=== PATIENT | female | born 1975 | race Caucasian/White ===

== ENCOUNTER → 2022-04-12 13:02 | Outpatient (CLI) | payer OTHER, SELFPAY ==
[2022-04-12 14:16] LABS: COVID19 -Nasal RAPID Negative (Negative)
== END ==
PROVIDERS: PCP Student in an Organized Health Care Education/Training Program; Visit Provider Surgery
DX: Z20.822 Contact with and (suspected) exposure to COVID-19 (principal); Z01.812 Encounter for preprocedural laboratory examination
CPT/HCPCS: 87635; C9803

== ENCOUNTER 2022-04-13 12:43 | Day surgery (SDC) | payer OTHER, SELFPAY ==
[2022-04-12 07:48] VITALS: BMI 37.7
[2022-04-13] VITALS (7 sets, daily range): BP systolic 131–158; BP diastolic 74–101; PULSE 72–101; RESP 16–20; TEMP 36.4–36.9; O2SAT 92–100; BMI 37.7
--- NOTE | 2022-04-13 | PATH_ITS ---
[facility] Accession Number: [id number] . 01 Material submitted: . buttock - LEFT BUTTOCK . 01 Clinical history: . SOFT TISSUE MASS . 01 Diagnosis: Left Buttock, Excisions: Fragments of mature fibroadipose tissue with fat necrosis, consistent with lipoma. MRV 04/18/2022 1023 Local . 01 Electronically signed: . Gen Garce MD, Dermatopathologist NPI- [id number] . 01 Gross description: . Received in formalin labeled with the patient's name and left buttock soft tissue mass and consists of multiple fragments of yellow lobulated soft tissue admixed with pink smooth soft tissue aggregating to 8.5 x 6.3 x 2.4 cm. The external surface of the largest fragment is inked blue. The specimen is serially sectioned to reveal yellow to pink unremarkable cut surface. Front End Manager sections are submitted in cassettes A1-A3. ([id number]) /[facility] 04/15/2022 1744 Local . 01 Pathologist provided ICD-10: D17.9 . 01 CPT . 441347 Specimen Comment: A courtesy copy of this report has been sent to [phone] Performed at: 01 [facility] [address] [place] [address] [address], [place], [place] [id number] MD Seth Marcelo MD Phone: [phone]
[2022-04-13] MEDS: LACTATED RINGERS 1,000 ML 100 ML IV (13:23)
--- NOTE | 2022-04-13 14:27 | PM.HP.1 ---
History of Present Illness History of Present Illness Date Patient Seen: 04/13/22 Time Patient Seen: 14:28 Chief complaint: ALC Narrative: 46-year-old woman with a symptomatic soft tissue mass of the left buttock here for excision in operating room. No interval changes in health. Please refer to the H& P from March 03, 2022 for further detail. Patient History Medical History Anxiety Bipolar 1 disorder Depression Encounter for weight management Family history of breast cancer Hot flashes Hypertension Hyponatremia Mass of left lower extremity PTSD (post-traumatic stress disorder) Surgical History History of endometrial ablation (07/2013) History of surgery (2005) History of surgery (2005) History of surgery (2005) Hx of appendectomy (2003) Hx of tubal ligation (2012) Family & Social History Family History Grandmother Hypertension Stroke Father Diabetes mellitus Social History: household members spouse Tobacco & Substance use: Tobacco type cigarettes Smoking Status Current every day smoker alcohol intake current Substance Use Type does not use Meds Home Medications and Allergies Home Medications Medication Instructions Recorded Confirmed Type bupropion HCl 150 mg 24 hr tablet, 150 mg PO QAM 03/03/22 04/13/22 History extended release lamotrigine 150 mg tablet 150 mg PO DAILY 03/03/22 04/13/22 History losartan 50 mg tablet (Cozaar) 50 mg PO DAILY 03/03/22 04/13/22 History ziprasidone HCl 40 mg capsule 40 mg PO BID 03/03/22 04/13/22 History Allergies Allergy/AdvReac Type Severity Reaction Status Date / Time ceftriaxone [From Rocephin] Allergy Mild Hives Verified 04/13/22 12:58 Exam Vital Signs (past 8 hours): - 04/13/22 13:01 Temperature 97.6 F Pulse Rate 85 Respiratory Rate 16 Blood Pressure 144/91 H Pulse Oximetry 96 Oxygen Delivery Method Room Air Oxygen Delivery Method Room Air Narrative Exam Narrative: General adult woman alert oriented no acute distress Buttocks-left soft tissue superficial mobile mass 10 cm marked with my initials Assessment & Plan Assessment and plan (1) Mass of left lower extremity: Status: Acute Assessment & Plan narrative: 46-year-old woman with a symptomatic soft tissue mass of the left buttock here for excision in operating. Overview of the operation was discussed with the patient. Operative risks including bleeding, infection, seroma formation, recurrence were discussed. Questions have been answered and she is in agreement with this plan Time Spent With Patient Critical Care time: I spent a total of [] minutes of critical care time on this patient's care today; this time is exclusive of procedural time.
[2022-04-13] MEDS: CLINDAMYCIN 900 MG/50 ML PIGGYBACK 50 MG IV (15:10)
--- NOTE | 2022-04-13 15:17 | SUR.OPER ---
Lateral on a mosley bag, head on pillow, gel axillary roll in place, bottom leg bent with gel pad under knee to foot, upper leg straight and supported with pillows. Upper arm supported by pillows and secured over bottom arm to padded arm board. Safety belt at torso to expose operative site, tape over blanket lower legs. Gel pad placed under right arm.
[2022-04-13] MEDS: BUPIVACAINE 0.25% (PF) VIAL 30 ML INJ (15:21)
--- NOTE | 2022-04-13 15:27 | SUR.OPER ---
Patients cell phone placed in belongings bag in pre-op area.
--- NOTE | 2022-04-13 16:14 | PM.OP.1 ---
Operative Date/Time/Diagnoses Date of procedure: 04/13/22 Time of procedure: 16:18 Pre-op diagnosis: Soft tissue mass of left buttock Post-op diagnosis: same Procedure & Clinicians Procedure: Excision of soft tissue mass from left buttock Same procedure as scheduled: Yes Indications: Painful soft tissue mass left buttock Surgeon: Nirmal Brown Anesthesia Type: General Operative Notes Findings: Soft tissue mass was consistent with the lipoma in addition there are remnants of an old cystic sac Specimen(s): other (Soft tissue mass) Estimated Blood Loss (mL): 20 Procedure in detail: Patient was brought to the operating room placed supine on the table. Bilateral lower extremity compression devices were applied. She received clindamycin prior to skin incision. She was induced then intubated with an LMA. She was then placed into the right lateral decubitus position and appropriately padded with he being back. She has an prepped and draped in sterile fashion. Time-out was performed. An incision was made over the area concern on the left buttocks. The subcutaneous tissue was divided and a lipoma was encountered of approximately 10 cm.. Lipoma was dissected out circumferentially. Deep to the lipoma there was a sac of a chronic cyst. There was no obvious cystic fluid however the sac was excised in its entirety. Hemostasis was achieved. The subcutaneous tissue was closed with 3-0 Vicryl. Skin was closed with Monocryl followed by Dermabond application of Steri-Strips. Patient tolerated procedure well. Complications: none Post-operative Condition: stable Disposition: same day surgery
[2022-04-13] MEDS: ACETAMINOPHEN 325 MG TABLET 975 MG PO (16:24)
[2022-04-13] MEDS: OXYCODONE IR 5 MG TABLET PO (16:24)
--- NOTE | 2022-04-13 16:56 | SUR.PHASEI ---
Late entry: 1630: Pt A&Ox4, dressing c/d/i, and ready to transition to phase 2. Report given to KAL Morgan.
== END 2022-04-13 17:00 | disposition home or self-care (01) ==
PROVIDERS: PCP Student in an Organized Health Care Education/Training Program; Referring Provider Surgery; Visit Provider Surgery
PROC: (CPT 21931; principal; 2022-04-13 15:15)
DX: D17.1 Benign lipomatous neoplasm of skin and subcutaneous tissue of trunk (principal)
CPT/HCPCS: 21931; 82962; J1100; J2250; J2405; J2704; J3010

== ENCOUNTER 2022-11-04 05:28 | Emergency (ER) | payer OTHER, SELFPAY ==
--- NOTE | 2022-11-04 05:47 | ED_ITS ---
HPI - Psych <Juan Tracy DO - Last Filed: 11/05/22 06:22> General Chief Complaint: Psychiatric Symptoms Stated Complaint: bipolar 1 cant get it under control Time Seen by Provider: 11/04/22 05:30 History of Present Illness HPI Narrative: 47-year-old female smoker with a history of bipolar and prior episodes of suicidal ideation and attempt presents tearful and requesting help. She states that she is been taking her medications as directed though about 2 weeks ago her prescriber switched her from Geodon to Latuda which seems to likely have been working relatively well but she is feeling out of control right now with intrusive thoughts and suicidal ideation with a plan to overdose on medications. She states that the primary trigger for this the fact that her daughter has been missing for 3 days and can not be found. Furthermore her primary support person is her who is currently away with the [employer] guard and does not return until Monday. She fears that she will hurt herself as she is at home and is very scared. She states that she frequently has auditory hallucinations that are nothing more than a whisper and that might be slightly more intense right now but she can not make out what they say. She denies any visual hallucinati ons. She denies any use of alcohol or street drugs. She last took her mental health medications at 9:00 a.m. yesterday. Related Data Home Medications Medication Instructions Recorded Confirmed bupropion HCl 150 mg 24 hr tablet, 150 mg PO QAM 03/03/22 05/05/22 extended release lamotrigine 150 mg tablet 150 mg PO DAILY 03/03/22 05/05/22 losartan 50 mg tablet (Cozaar) 50 mg PO DAILY 03/03/22 05/05/22 ziprasidone HCl 40 mg capsule 40 mg PO BID 03/03/22 05/05/22 Previous Rx's Medication Instructions Recorded acetaminophen 325 mg capsule 650 mg PO QID PRN pain #60 caps 04/13/22 (Tylenol) ibuprofen 200 mg tablet 400 mg PO Q6H #60 tabs 04/13/22 oxycodone 5 mg tablet 5 mg PO Q6H PRN pain #10 tabs 04/13/22 Allergies Allergy/AdvReac Type Severity Reaction Status Date / Time ceftriaxone [From Rocephin] Allergy Mild Hives Verified 05/05/22 14:34 Review of Systems <Juan Tracy DO - Last Filed: 11/05/22 06:22> Review of Systems Narrative: GENERAL: Denies chills, fatigue, malaise, fever, sweats. HEENT: Denies sinus pain, ear pain, sore throat, difficulty swallowing, dizziness. RESPIRATORY: Denies dyspnea, cough, wheezing, hemoptysis, sputum. CARDIOVASCULAR: Denies chest pain, palpitations, orthopnea, edema, GASTROINTESTINAL: Denies nausea, vomiting, abdominal pain, diarrhea, constipation, melena. : Denies dysuria, frequency, incontinence, hematuria, urinary retention. MUSCULOSKELETAL: denies weakness, joint pain, or bony pain SKIN: Denies rash, skin lesions, or other NEUROLOGIC: Denies weakness, headache, numbness, change in speech, confusion, seizures, incoordination. PSYCHIATRIC: See HPI 12 point review of systems is negative except for those stated above Patient History <Juan Tracy DO - Last Filed: 11/05/22 06:22> Medical History Anxiety Bipolar 1 disorder Depression Encounter for weight management Family history of breast cancer Hot flashes Hypertension Hyponatremia Mass of left lower extremity PTSD (post-traumatic stress disorder) Surgical History History of endometrial ablation (07/2013) History of surgery (2005) History of surgery (2005) History of surgery (2005) Hx of appendectomy (2003) Hx of tubal ligation (2012) Family History Grandmother Hypertension Stroke Father Diabetes mellitus Social History household members: spouse Smoking Status: Current every day smoker alcohol intake: current Smoking Status: Current every day smoker Substance Use Type: does not use Exam <Juan Tracy DO - Last Filed: 11/05/22 06:22> Narrative Exam Narrative: GENERAL: [47] year old patient appears stated age. Well-developed patient, in moderate distress, tearful, crying HEAD: Atraumatic. Normocephalic. EYES: Pupils equal round and reactive. Extraocular motions intact. No scleral icterus. No injection or drainage. ENT: Nose without bleeding, purulent drainage. Throat without erythema, tonsillar hypertrophy or exudate. Airway patent. NECK: Trachea midline. Non tender CARDIOVASCULAR: Regular rate and rhythm without murmurs, gallops, or rubs. RESPIRATORY: Clear to auscultation. Breath sounds equal bilaterally. No wheezes, rales, or rhonchi. GASTROINTESTINAL: Abdomen soft, non-tender, nondistended. EXTREMITIES: No edema or joint tenderness. BACK: Nontender without deformity or crepitance. No flank tenderness. NEURO: AOx3. SKIN: No rash or erythema of visible areas Initial Vital Signs Initial Vital Signs: Vital Signs Temperature 97.6 F 11/04/22 05:54 Pulse Rate 87 11/04/22 05:54 Respiratory Rate 16 11/04/22 05:54 Blood Pressure 183/106 H 11/04/22 05:54 Pulse Oximetry 100 11/04/22 05:54 Oxygen Delivery Method Room Air 11/04/22 05:54 <Sydnie Reynoso DO - Last Filed: 11/04/22 08:18> Initial Vital Signs Initial Vital Signs: Vital Signs Temperature 97.6 F 11/04/22 05:54 Pulse Rate 87 11/04/22 05:54 Respiratory Rate 16 11/04/22 05:54 Blood Pressure 183/106 H 11/04/22 05:54 Pulse Oximetry 100 11/04/22 05:54 Oxygen Delivery Method Room Air 11/04/22 05:54 Course <Juan Tracy DO - Last Filed: 11/05/22 06:22> Orders Ordered: Discontinued Medications Lamotrigine (Lamotrigine 100 Mg Tablet) 100 mg PO NOW ONE Stop: 11/04/22 06:04 Last Admin: 11/04/22 06:54 Dose: 100 mg Documented By: SUDHA Losartan Potassium (Losartan 50 Mg Tablet) 50 mg PO NOW ONE Stop: 11/04/22 06:04 Last Admin: 11/04/22 07:22 Dose: 50 mg Documented By: SUDHA Olanzapine (Olanzapine Odt 10 Mg Tab) 10 mg PO NOW ONE Stop: 11/04/22 06:04 Last Admin: 11/04/22 06:54 Dose: 10 mg Documented By: SUDHA Vital Signs Vital signs: Vital Signs - 8 hr 11/04/22 05:54 11/04/22 07:14 Temperature 97.6 F Pulse Rate 87 82 Respiratory Rate 16 16 Blood Pressure 183/106 H 169/92 H Pulse Oximetry 100 100 Oxygen Delivery Method Room Air Room Air <Sydnie Reynoso DO - Last Filed: 11/04/22 08:18> Orders Ordered: Discontinued Medications Lamotrigine (Lamotrigine 100 Mg Tablet) 100 mg PO NOW ONE Stop: 11/04/22 06:04 Last Admin: 11/04/22 06:54 Dose: 100 mg Documented By: BS Losartan Potassium (Losartan 50 Mg Tablet) 50 mg PO NOW ONE Stop: 11/04/22 06:04 Last Admin: 11/04/22 07:22 Dose: 50 mg Documented By: BS Olanzapine (Olanzapine Odt 10 Mg Tab) 10 mg PO NOW ONE Stop: 11/04/22 06:04 Last Admin: 11/04/22 06:54 Dose: 10 mg Documented By: BS Vital Signs Vital signs: Vital Signs - 8 hr 11/04/22 05:54 11/04/22 07:14 Temperature 97.6 F Pulse Rate 87 82 Respiratory Rate 16 16 Blood Pressure 183/106 H 169/92 H Pulse Oximetry 100 100 Oxygen Delivery Method Room Air Room Air MDM - Psych <Juan Tracy DO - Last Filed: 11/05/22 06:22> Lab Data 11/04/22 06:20 11/04/22 06:20 Labs: Lab Results 11/04/22 11/04/22 11/04/22 Range/Units 05:49 06:20 06:20 WBC 7.3 (4.5-11.0) X10^3/uL RBC 4.41 (4.0-5.2) X10^6/uL Hgb 13.7 (12.0-16.0) g/dL Hct 39.4 (36-46) % MCV 89.4 (80-100) fL MCH 31.1 (26-34) PG MCHC 34.8 (30-36) % RDW 13.2 (11.6-14.8) % Plt Count 305 (150-400) X10^3/uL Neut % (Auto) 57.9 (50-75) % Lymph % (Auto) 33.5 (25-40) % [place] % (Auto) 6.1 (3-14) % Eos % (Auto) 2.0 (2-4) % Baso % (Auto) 0.5 (0-2) % Neut # (Auto) 4200 (4558-3186) /uL Lymph # (Auto) 2400 (9875-3862) /uL [place] # (Auto) 400 (0-900) /uL Eos # (Auto) 100 (0-450) /uL Baso # (Auto) 0 (0-100) /uL Sodium 139 (137-145) mmol/L Potassium 3.8 (3.4-5.1) mmol/L Chloride 105 (98-107) mmol/L Carbon Dioxide 29 (22-32) mmol/L BUN 16 (7-17) mg/dL Creatinine 0.75 (0.52-1.04) mg/dL Estimated GFR > 60 (>60) mL/min BUN/Creatinine Ratio 21.3 (6-22) Glucose 90 (70-100) mg/dL Calcium 8.8 (8.4-10.2) mg/dL Total Bilirubin 0.3 (0.2-1.3) mg/dL AST 38 H (14-36) IU/L ALT 58 H (<35) IU/L Alkaline Phosphatase 70 (38-126) U/L Total Protein 7.5 (6.3-8.2) g/dL Albumin 4.3 (3.5-5.0) g/dL Globulin 3.2 (1.7-4.1) g/dL Albumin/Globulin Ratio 1.3 (1.0-2.8) TSH (0.47-4.68) uIU/mL U Opiates 300ng/mL cut Negative (Negative) Ur Oxycodone Screen Negative (Negative) Urine Methadone Screen Negative (Negative) Ur Barbiturates Screen Negative (Negative) U Tricyclic Antidepress Negative (Negative) Ur Phencyclidine Scrn Negative (Negative) Ur Amphetamines Screen Negative (Negative) U Methamphetamines Scrn Negative (Negative) Ur MDMA Scrn (Ecstasy) Negative (Negative) U Benzodiazepines Scrn Negative (Negative) Urine Cocaine Screen Negative (Negative) U Marijuana (THC) Screen Negative (Negative) Ethyl Alcohol < 10 ( - 10) mg/dL 11/04/22 Range/Units 06:20 WBC (4.5-11.0) X10^3/uL RBC (4.0-5.2) X10^6/uL Hgb (12.0-16.0) g/dL Hct (36-46) % MCV (80-100) fL MCH (26-34) PG MCHC (30-36) % RDW (11.6-14.8) % Plt Count (150-400) X10^3/uL Neut % (Auto) (50-75) % Lymph % (Auto) (25-40) % [place] % (Auto) (3-14) % Eos % (Auto) (2-4) % Baso % (Auto) (0-2) % Neut # (Auto) (2646-3741) /uL Lymph # (Auto) (1537-6704) /uL [place] # (Auto) (0-900) /uL Eos # (Auto) (0-450) /uL Baso # (Auto) (0-100) /uL Sodium (137-145) mmol/L Potassium (3.4-5.1) mmol/L Chloride (98-107) mmol/L Carbon Dioxide (22-32) mmol/L BUN (7-17) mg/dL Creatinine (0.52-1.04) mg/dL Estimated GFR (>60) mL/min BUN/Creatinine Ratio (6-22) Glucose (70-100) mg/dL Calcium (8.4-10.2) mg/dL Total Bilirubin (0.2-1.3) mg/dL AST (14-36) IU/L ALT (<35) IU/L Alkaline Phosphatase (38-126) U/L Total Protein (6.3-8.2) g/dL Albumin (3.5-5.0) g/dL Globulin (1.7-4.1) g/dL Albumin/Globulin Ratio (1.0-2.8) TSH 2.08 (0.47-4.68) uIU/mL U Opiates 300ng/mL cut (Negative) Ur Oxycodone Screen (Negative) Urine Methadone Screen (Negative) Ur Barbiturates Screen (Negative) U Tricyclic Antidepress (Negative) Ur Phencyclidine Scrn (Negative) Ur Amphetamines Screen (Negative) U Methamphetamines Scrn (Negative) Ur MDMA Scrn (Ecstasy) (Negative) U Benzodiazepines Scrn (Negative) Urine Cocaine Screen (Negative) U Marijuana (THC) Screen (Negative) Ethyl Alcohol ( - 10) mg/dL Point of Care Testing Test Results Negative Urine Dip Bedside Urine Glucose Negative Bedside Urine Bilirubin - Negative Bedside Urine Ketone - Negative Urine Specific [place] 1.015 Bedside Urine Occult Blood - Negative Bedside Urine pH 7.0 Bedside Urine Protein - Negative Bedside Urine Urobilinogen - Negative Bedside Urine Nitrite - Negative Bedside Urine Leukocytes - Negative Esterase <Sydnie Reynoso, DO - Last Filed: 11/04/22 08:18> Lab Data Labs: Lab Results 11/04/22 11/04/22 11/04/22 Range/Units 05:49 06:20 06:20 WBC 7.3 (4.5-11.0) X10^3/uL RBC 4.41 (4.0-5.2) X10^6/uL Hgb 13.7 (12.0-16.0) g/dL Hct 39.4 (36-46) % MCV 89.4 (80-100) fL MCH 31.1 (26-34) PG MCHC 34.8 (30-36) % RDW 13.2 (11.6-14.8) % Plt Count 305 (150-400) X10^3/uL Neut % (Auto) 57.9 (50-75) % Lymph % (Auto) 33.5 (25-40) % [place] % (Auto) 6.1 (3-14) % Eos % (Auto) 2.0 (2-4) % Baso % (Auto) 0.5 (0-2) % Neut # (Auto) 4200 (0003-0331) /uL Lymph # (Auto) 2400 (0214-7062) /uL [place] # (Auto) 400 (0-900) /uL Eos # (Auto) 100 (0-450) /uL Baso # (Auto) 0 (0-100) /uL Sodium 139 (137-145) mmol/L Potassium 3.8 (3.4-5.1) mmol/L Chloride 105 (98-107) mmol/L Carbon Dioxide 29 (22-32) mmol/L BUN 16 (7-17) mg/dL Creatinine 0.75 (0.52-1.04) mg/dL Estimated GFR > 60 (>60) mL/min BUN/Creatinine Ratio 21.3 (6-22) Glucose 90 (70-100) mg/dL Calcium 8.8 (8.4-10.2) mg/dL Total Bilirubin 0.3 (0.2-1.3) mg/dL AST 38 H (14-36) IU/L ALT 58 H (<35) IU/L Alkaline Phosphatase 70 (38-126) U/L Total Protein 7.5 (6.3-8.2) g/dL Albumin 4.3 (3.5-5.0) g/dL Globulin 3.2 (1.7-4.1) g/dL Albumin/Globulin Ratio 1.3 (1.0-2.8) TSH (0.47-4.68) uIU/mL U Opiates 300ng/mL cut Negative (Negative) Ur Oxycodone Screen Negative (Negative) Urine Methadone Screen Negative (Negative) Ur Barbiturates Screen Negative (Negative) U Tricyclic Antidepress Negative (Negative) Ur Phencyclidine Scrn Negative (Negative) Ur Amphetamines Screen Negative (Negative) U Methamphetamines Scrn Negative (Negative) Ur MDMA Scrn (Ecstasy) Negative (Negative) U Benzodiazepines Scrn Negative (Negative) Urine Cocaine Screen Negative (Negative) U Marijuana (THC) Screen Negative (Negative) Ethyl Alcohol < 10 ( - 10) mg/dL 11/04/22 Range/Units 06:20 WBC (4.5-11.0) X10^3/uL RBC (4.0-5.2) X10^6/uL Hgb (12.0-16.0) g/dL Hct (36-46) % MCV (80-100) fL MCH (26-34) PG MCHC (30-36) % RDW (11.6-14.8) % Plt Count (150-400) X10^3/uL Neut % (Auto) (50-75) % Lymph % (Auto) (25-40) % [place] % (Auto) (3-14) % Eos % (Auto) (2-4) % Baso % (Auto) (0-2) % Neut # (Auto) (7555-7356) /uL Lymph # (Auto) (5520-1948) /uL [place] # (Auto) (0-900) /uL Eos # (Auto) (0-450) /uL Baso # (Auto) (0-100) /uL Sodium (137-145) mmol/L Potassium (3.4-5.1) mmol/L Chloride (98-107) mmol/L Carbon Dioxide (22-32) mmol/L BUN (7-17) mg/dL Creatinine (0.52-1.04) mg/dL Estimated GFR (>60) mL/min BUN/Creatinine Ratio (6-22) Glucose (70-100) mg/dL Calcium (8.4-10.2) mg/dL Total Bilirubin (0.2-1.3) mg/dL AST (14-36) IU/L ALT (<35) IU/L Alkaline Phosphatase (38-126) U/L Total Protein (6.3-8.2) g/dL Albumin (3.5-5.0) g/dL Globulin (1.7-4.1) g/dL Albumin/Globulin Ratio (1.0-2.8) TSH 2.08 (0.47-4.68) uIU/mL U Opiates 300ng/mL cut (Negative) Ur Oxycodone Screen (Negative) Urine Methadone Screen (Negative) Ur Barbiturates Screen (Negative) U Tricyclic Antidepress (Negative) Ur Phencyclidine Scrn (Negative) Ur Amphetamines Screen (Negative) U Methamphetamines Scrn (Negative) Ur MDMA Scrn (Ecstasy) (Negative) U Benzodiazepines Scrn (Negative) Urine Cocaine Screen (Negative) U Marijuana (THC) Screen (Negative) Ethyl Alcohol ( - 10) mg/dL Point of Care Testing Test Results Negative Urine Dip Bedside Urine Glucose Negative Bedside Urine Bilirubin - Negative Bedside Urine Ketone - Negative Urine Specific [place] 1.015 Bedside Urine Occult Blood - Negative Bedside Urine pH 7.0 Bedside Urine Protein - Negative Bedside Urine Urobilinogen - Negative Bedside Urine Nitrite - Negative Bedside Urine Leukocytes - Negative Esterase MDM Narrative Medical decision making narrative: Patient 47-year-old female signed out to me by Dr. Tracy. History of hypertension bipolar presenting today with acute anxiety. She has hurts situation where her she can not find her daughter she is not hard for her in the last 3 days. She is a heroin addict her phone got turned off couple days ago. She was supposed be home by now and she is not. She now is requesting to go home she states stated that she just needed a neutral safe place to be. She denies wanting to hurt herself or hurting anyone else. Her comes home today from the [place]. She reports that she has extremely high blood pressure her doctor just increased her losartan dose. She actually just get her medication about 30 minutes ago. She is asymptomatic chest pain shortness of breath or any other symptoms. Discharge Plan Departure Patient Disposition: Home Clinical Impression: Acute anxiety Instructions: DI for Anxiety -- Adult Activity Restrictions/Additional Instructions: *You have been diagnosed with anxiety *What to do: I am so sorry you have to deal with this. Best of luck to you. *Continue to take medications as directed *Follow up with your primary care provider in 2-3 days or call [phone] *Return to ER if you should have worsening anxiety thoughts of harming or any n ew, worsening or concerning symptoms Prescriptions: No Action bupropion HCl 150 mg tablet extended release 24 hr 150 mg PO QAM lamotrigine 150 mg tablet 150 mg PO DAILY losartan [Cozaar] 50 mg tablet 50 mg PO DAILY ziprasidone HCl 40 mg capsule 40 mg PO BID Rx Instructions: give with food (meal/snack) ibuprofen 200 mg tablet 400 mg PO Q6H Qty: 60 0RF oxycodone 5 mg tablet 5 mg PO Q6H PRN (Reason: pain) Qty: 10 0RF acetaminophen [Tylenol] 325 mg capsule 650 mg PO QID PRN (Reason: pain) Qty: 60 0RF Referrals: Mayela Brambila DO [Primary Care Provider] - Stand Alone Forms: Patient Portal/API
[2022-11-04 05:54] VITALS: BP 183/106; PULSE 87; RESP 16; TEMP 36.4; O2SAT 100
[2022-11-04 06:13] LABS: UR Morphine/Opiate cutoff 300 Negative (Negative); Ur Creatinine Normal (Normal); Ur Specific Gravity Normal (Normal); Urine Amphetamines Negative (Negative); Urine Barbiturates Negative (Negative); Urine Benzodiazepines Negative (Negative); Urine Cocaine Negative (Negative); Urine MDMA Negative (Negative); Urine Methadone Negative (Negative); Urine Methamphetamines Negative (Negative); Urine Oxycodone Negative (Negative); Urine Phencyclidine Negative (Negative); Urine Tetrahydrocannabinol Negative (Negative); Urine Tricyclic Antidepressant Negative (Negative); Urine pH Normal (Normal)
[2022-11-04 06:26] LABS: Add Manual Diff / Slide Review NO; Basophils Absolute Auto 0 /uL (0-100); Basophils Percent Auto 0.5 % (0-2); Eosinophils Absolute Auto 100 /uL (0-450); Hematocrit 39.4 % (36-46); Hemoglobin 13.7 g/dL (12.0-16.0); Lymphocytes Absolute Auto 2400 /uL (1100-4500); Lymphocytes Percent Auto 33.5 % (25-40); Mean Corpuscular HGB Conc 34.8 % (30-36); Mean Corpuscular Hemoglobin 31.1 PG (26-34); Mean Corpuscular Volume 89.4 fL (80-100); Monocytes Absolute Auto 400 /uL (0-900); Monocytes Percent Auto 6.1 % (3-14); Neutrophils Absolute Auto 4200 /uL (1500-7000); Neutrophils Percent Auto 57.9 % (50-75); Platelet Count 305 X10^3/uL (150-400); Red Blood Cell Count 4.41 X10^6/uL (4.0-5.2); Red Cell Distribution Width 13.2 % (11.6-14.8); White Blood Cell Count 7.3 X10^3/uL (4.5-11.0)
[2022-11-04 06:44] LABS: Alanine Aminotransferase 58 IU/L (<35); Albumin 4.3 g/dL (3.5-5.0); Albumin Globulin Ratio 1.3 (1.0-2.8); Alkaline Phosphatase 70 U/L (38-126); Aspartate Aminotransferase 38 IU/L (14-36); BUN Creatinine Ratio 21.3 (6-22); Bilirubin Total 0.3 mg/dL (0.2-1.3); Blood Urea Nitrogen 16 mg/dL (7-17); Calcium 8.8 mg/dL (8.4-10.2); Carbon Dioxide 29 mmol/L (22-32); Chloride 105 mmol/L (98-107); Estimated Glomerular Filt Rate > 60 mL/min (>60); Ethanol (ETOH) < 10 mg/dL; Globulin 3.2 g/dL (1.7-4.1); Glucose 90 mg/dL (70-100); HEMOLYSIS < 15 (0-50); Potassium 3.8 mmol/L (3.4-5.1); Sodium 139 mmol/L (137-145); Total Protein 7.5 g/dL (6.3-8.2)
[2022-11-04] MEDS: lamoTRIgine 100 MG TABLET PO (06:54)
[2022-11-04] MEDS: OLANZapine ODT 10 MG TAB PO (06:54)
[2022-11-04 07:14] VITALS: BP 169/92; PULSE 82; RESP 16; O2SAT 100
[2022-11-04] MEDS: LOSARTAN 50 MG TABLET PO (07:22)
[2022-11-04 07:24] LABS: TSH w/ Reflex to FT4 2.08 uIU/mL (0.47-4.68)
[2022-11-04 08:14] VITALS: PULSE 87; O2SAT 96
[2022-11-04 08:15] VITALS: BP 205/111; PULSE 87; O2SAT 98
[2022-11-04 08:16] VITALS: BP 192/101; PULSE 82; O2SAT 97
== END 2022-11-04 08:25 | disposition home or self-care (01) ==
PROVIDERS: Emergency Medicine; Emergency Provider Emergency Medicine; PCP Student in an Organized Health Care Education/Training Program
DX: F41.9 Anxiety disorder, unspecified (principal)
CPT/HCPCS: 36415; 80053; 80305; 80320; 81003; 81025; 84443; 85025; 93005; 99284

== ENCOUNTER 2023-06-14 13:40 | Emergency (ER) | payer OTHER, SELFPAY ==
[2023-06-14 14:07] VITALS: BP 143/89; PULSE 90; RESP 16; TEMP 36.6; O2SAT 98; BMI 35.4
--- NOTE | 2023-06-14 14:10 | DI.RAD.S_ITS ---
PROCEDURE: XR HAND RT MIN 3V INDICATIONS: right pinky/palm pain TECHNIQUE: 3 views of the hand(s) acquired. COMPARISON: None. FINDINGS: Bones: No fractures or dislocations. Carpal bones are normally aligned. No suspicious bony lesions. Soft tissues: No suspicious soft tissue calcifications. IMPRESSION: No visualized acute fracture or dislocation. However, if clinical concern and/or pain persist, short interval imaging followup in 7-10 days is recommended, as occult injury cannot be definitively excluded. Dictated by: Celeste Shukla M.D. on 06/14/2023 at 15:05 Approved by: Celeste Shukla M.D. on 06/14/2023 at 15:05
== END 2023-06-14 15:05 | disposition left against medical advice (07) ==
PROVIDERS: Emergency Provider Emergency Medicine; PCP Student in an Organized Health Care Education/Training Program
DX: M79.641 Pain in right hand (principal); Y99.0 Civilian activity done for income or pay
CPT/HCPCS: 73130; 99281

== ENCOUNTER 2023-06-15 13:36 | Emergency (ER) | payer OTHER, SELFPAY ==
[2023-06-15 13:41] VITALS: BP 161/106; PULSE 87; RESP 18; TEMP 37; O2SAT 99; BMI 35.4
--- NOTE | 2023-06-15 14:00 | ED.NECK ---
HPI - Neck Pain/Injury General Chief Complaint: Neck Pain/Injury Stated Complaint: hurt neck shoulder & pinky at work T-1 Time Seen by Provider: 06/15/23 13:46 Mode of arrival: Ambulatory History of Present Illness HPI Narrative: 47-year-old female presents for neck pain and stiffness. 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 Denies trauma. Also reports slight pain in her pinky finger, again denies trauma. She states that she is mostly here because the pain causes her not to be able to sleep at night and she is requesting medications to help with the pain so that she may sleep. Related Data Home Medications Medication Instructions Recorded Confirmed bupropion HCl 150 mg 24 hr tablet, 150 mg PO QAM 03/03/22 02/25/23 extended release lamotrigine 150 mg tablet 150 mg PO DAILY 03/03/22 02/25/23 losartan 50 mg tablet (Cozaar) 50 mg PO DAILY 03/03/22 02/25/23 ziprasidone HCl 40 mg capsule 40 mg PO BID 03/03/22 02/25/23 Previous Rx's Medication Instructions Recorded acetaminophen 325 mg capsule 650 mg (2 x 325 mg) PO QID PRN 04/13/22 (Tylenol) pain #60 caps ibuprofen 200 mg tablet 400 mg (2 x 200 mg) PO Q6H #60 tabs 04/13/22 oxycodone 5 mg tablet 5 mg PO Q6H PRN pain #10 tabs 04/13/22 cyclobenzaprine 5 mg tablet 5 mg PO TID PRN muscle spasm #20 02/25/23 tabs cyclobenzaprine 5 mg tablet 5 mg PO TID PRN muscle spasm #20 06/15/23 tabs Allergies Allergy/AdvReac Type Severity Reaction Status Date / Time ceftriaxone [From Rocephin] Allergy Mild Hives Verified 02/25/23 15:48 Review of Systems Review of Systems Narrative: CONSTITUTIONAL- Denies: fever, chills, fatigue HEENT- Denies: sore throat, nosebleed, vision changes RESPIRATORY- Denies: shortness of breath, cough, wheezing CARDIAC- Denies: chest pain, edema, orthopnea GI- Denies: abdominal pain, nausea, vomiting, constipation, diarrhea - Denies: frequency, dysuria, hematuria, flank pain MSK-reports: Neck pain, right pinky finger pain Denies: extremity swelling, joint pain, joint swelling SKIN- Denies: rash, itching, burn, swelling NEUROLOGICAL- Denies: headache, numbness, weakness, dizziness PSYCHIATRIC- Denies: anxiety, depression, suicidal ideation, homicidal ideation Patient History Medical History Anxiety Bipolar 1 disorder Depression Encounter for weight management Family history of breast cancer Hot flashes Hypertension Hyponatremia Mass of left lower extremity PTSD (post-traumatic stress disorder) Surgical History History of endometrial ablation (07/2013) History of surgery (2005) History of surgery (2005) History of surgery (2005) Hx of appendectomy (2003) Hx of tubal ligation (2012) Family History Grandmother Hypertension Stroke Father Diabetes mellitus Social History household members: spouse Smoking Status: Current every day smoker alcohol intake: current Smoking Status: Current every day smoker tobacco type: cigarettes alcohol intake frequency: a few times a month Substance Use Type: does not use Exam Initial Vital Signs Initial Vital Signs: Vital Signs Temperature 98.6 F 06/15/23 13:41 Pulse Rate 87 06/15/23 13:41 Respiratory Rate 18 06/15/23 13:41 Blood Pressure 161/106 H 06/15/23 13:41 Pulse Oximetry 99 06/15/23 13:41 Oxygen Delivery Method Room Air 06/15/23 13:41 Const: Awake, alert, no acute distress, nontoxic appearing Eyes: PERRL, EOMI, conjunctiva normal ENT: Atraumatic, dentition normal, mucous membranes moist Cardiac: regular rate, regular rhythm RESP: unlabored, clear bilaterally, no wheezing GI: Atraumatic, soft, nontender, nondistended, no rebound, no guarding MSK: Atraumatic, full range of motion, pulses equal, no midline vertebral tenderness, paraspinal muscle tenderness along the cervical region, trapezius muscle tenderness to palpation Skin: Warm, Dry, intact, no rashes Neuro: AO x3, CN II-XII grossly intact, moves all extremities Psych: affect normal, mood normal, not suicidal, not homicidal Course Course Course Narrative: Musculoskeletal neck pain, patient stating she believes this is after using inappropriate moving and lifting techniques at work. No indication for advanced imaging at this time. Patient did drive herself to work today, she was given an anti-inflammatory shot and lidocaine patch. She was advised to continue taking Tylenol and Motrin at home, short course of muscle relaxers sent to pharmacy of choice. In addition patient was counseled that she may employ gentle stretching exercises and massage for her pain. ED return precautions discussed at bedside. Patient expressed understanding of the plan and is in agreement at this time. All questions answered at the time of discharge. Orders Ordered: Discontinued Medications Ketorolac Tromethamine (Ketorolac 30 Mg/Ml Vial) 30 mg IM NOW ONE Stop: 06/15/23 14:01 Last Admin: 06/15/23 14:06 Dose: 30 mg Documented By: ROSIBEL Lidocaine (Lidocaine Patch 1 Each Adh..Patch) 1 each TOP NOW ONE Stop: 06/15/23 14:01 Last Admin: 06/15/23 14:06 Dose: 1 each Documented By: ROSIBEL Vital Signs Vital signs: Vital Signs - 8 hr 06/15/23 13:41 Temperature 98.6 F Pulse Rate 87 Respiratory Rate 18 Blood Pressure 161/106 H Pulse Oximetry 99 Oxygen Delivery Method Room Air MDM - Neck Pain/Injury Differential Diagnosis Differential diagnosis: Likely disc disorder of cervical region, whiplash injury to neck and torticollis Discharge Plan Departure Patient Disposition: Home Clinical Impression: Strain of neck muscle Qualifiers: Encounter type: initial encounter Qualified Code(s): S16.1XXA - Strain of muscle, fascia and tendon at neck level, initial encounter Instructions: Neck Sprain Prescriptions: New cyclobenzaprine 5 mg tablet 5 mg PO TID PRN (Reason: muscle spasm) Qty: 20 0RF No Action cyclobenzaprine 5 mg tablet 5 mg PO TID PRN (Reason: muscle spasm) Qty: 20 0RF bupropion HCl 150 mg tablet extended release 24 hr 150 mg PO QAM lamotrigine 150 mg tablet 150 mg PO DAILY losartan [Cozaar] 50 mg tablet 50 mg PO DAILY ziprasidone HCl 40 mg capsule 40 mg PO BID Rx Instructions: give with food (meal/snack) ibuprofen 200 mg tablet 400 mg PO Q6H Qty: 60 0RF oxycodone 5 mg tablet 5 mg PO Q6H PRN (Reason: pain) Qty: 10 0RF acetaminophen [Tylenol] 325 mg capsule 650 mg PO QID PRN (Reason: pain) Qty: 60 0RF Referrals: Mayela Brambila DO [Primary Care Provider] - Stand Alone Forms: Patient Portal/API, Work Release Note
[2023-06-15] MEDS: LIDOCAINE PATCH 1 EACH ADH..PATCH TOP (14:06)
[2023-06-15] MEDS: KETOROLAC 30 MG/ML VIAL IM (14:06)
[2023-06-15 14:28] VITALS: BP 181/100; PULSE 76; RESP 16; O2SAT 98
== END 2023-06-15 14:29 | disposition home or self-care (01) ==
PROVIDERS: Emergency Provider Emergency Medicine; PCP Student in an Organized Health Care Education/Training Program
DX: S16.1XXA Strain of muscle, fascia and tendon at neck level, initial encounter (principal); X58.XXXA Exposure to other specified factors, initial encounter; Y93.F9 Activity, other caregiving; Y99.0 Civilian activity done for income or pay
CPT/HCPCS: 96372; 99283; J1885

== ENCOUNTER 2023-08-01 10:55 | Emergency (ER) | payer OTHER, SELFPAY ==
[2023-08-01 10:56] VITALS: BP 142/69; PULSE 101; RESP 15; TEMP 36.7; O2SAT 98; BMI 35.4
--- NOTE | 2023-08-01 11:16 | ED_ITS ---
HPI - Abdominal Pain <Chris Meade PA-C - Last Filed: 08/01/23 13:38> General Chief Complaint: Abdominal Pain Stated Complaint: pain in lower R/side Time Seen by Provider: 08/01/23 11:05 Source: patient Mode of arrival: Ambulatory History of Present Illness HPI narrative: 47-year-old female with past medical history bipolar disorder, hypertension, distant history of ovarian cysts presents to the ED with 1 month of right sided pelvic pain. Patient states that the pain is nagging, has been persistent over the last month, aggravated by sitting down or laying down. Patient states she feels better standing up or walking. Patient states that she feels better when she pushes on the right lower quadrant, feels like something needs to pop. Last time that the patient had a ovarian cyst that she is aware of was in 2000. Patient denies fever, chills, chest pain, shortness of breath, vomiting, dysuria, syncope. Patient does endorse nausea at night. Patient endorses some lightheadedness/dizziness sporadically, which she describes as the room swaying. Patient suspects that she might be lightheaded from dehydration. Patient endorses urinary frequency, urinary urgency. Patient's last menstrual period was in 2017 after which she had an ablation. Patient is status post appendectomy. Bowel movements normal per patient, without hematochezia or melena. Related Data Home Medications Medication Instructions Recorded Confirmed bupropion HCl 150 mg 24 hr tablet, 150 mg PO QAM 03/03/22 02/25/23 extended release lamotrigine 150 mg tablet 150 mg PO DAILY 03/03/22 02/25/23 losartan 50 mg tablet (Cozaar) 50 mg PO DAILY 03/03/22 02/25/23 ziprasidone HCl 40 mg capsule 40 mg PO BID 03/03/22 02/25/23 Previous Rx's Medication Instructions Recorded acetaminophen 325 mg capsule 650 mg (2 x 325 mg) PO QID PRN 04/13/22 (Tylenol) pain #60 caps ibuprofen 200 mg tablet 400 mg (2 x 200 mg) PO Q6H #60 tabs 04/13/22 oxycodone 5 mg tablet 5 mg PO Q6H PRN pain #10 tabs 04/13/22 cyclobenzaprine 5 mg tablet 5 mg PO TID PRN muscle spasm #20 02/25/23 tabs cyclobenzaprine 5 mg tablet 5 mg PO TID PRN muscle spasm #20 06/15/23 tabs Allergies Allergy/AdvReac Type Severity Reaction Status Date / Time ceftriaxone [From Rocephin] Allergy Mild Hives Verified 08/01/23 10:59 Review of Systems <Chris Meade PA-C - Last Filed: 08/01/23 13:38> Constitutional Constitutional: Denies chills, Denies fatigue, Denies fever(s), Denies frequent falls, Denies lethargy and Denies weakness Eyes Eyes: Denies change in vision, Denies eye discharge, Denies irritation and Denies loss of vision ENT Ears, Nose, Mouth, and Throat: Denies change in voice, Denies dizziness, Denies neck pain, Denies sore throat and Denies throat swelling Cardiovascular Cardiovascular: Denies chest pain, Denies irregular heart rhythm, Denies lightheadedness, Denies palpitations, Denies dyspnea, Denies dyspnea on exertion and Denies orthopnea Respiratory Respiratory: Denies cough, Denies dyspnea, Denies dyspnea on exertion and Denies wheezing Gastrointestinal Gastrointestinal: Reports abdominal pain, Denies change in bowel habits, Denies diarrhea, Reports nausea and Denies vomiting Genitourinary Genitourinary: Reports pelvic pain and Reports urinary urgency Comments: Urinary urgency, urinary frequency Musculoskeletal Musculoskeletal: Denies neck pain and Denies numbness Integumentary/Breasts Skin/Breast: Denies pruritus, Denies erythema, Denies rash and Denies wounds Neurologic Neurologic: Denies behavioral changes, Denies confusion, Denies dizziness, Denies frequent falls, Denies loss of vision, Denies numbness and Denies weakness Psychiatric Psychiatric: Denies anxiety, Denies behavioral changes, Denies confusion, Denies depression, Denies homicidal ideation and Denies suicidal ideation Endocrine Endocrine: Denies fatigue, Denies flushing and Denies palpitations Hematologic/Lymphatic Hematologic/Lymphatic: Denies easy bruising Allergic/Immunologic Allergic/Immunologic: Denies urticaria, Denies throat swelling and Denies wheezing Patient History <Chris Meade PA-C - Last Filed: 08/01/23 13:38> Medical History PTSD (post-traumatic stress disorder) Anxiety Depression Bipolar 1 disorder Mass of left lower extremity Hyponatremia Hot flashes Family history of breast cancer Hypertension Encounter for weight management Surgical History History of endometrial ablation (07/2013) Hx of tubal ligation (2012) Hx of appendectomy (2003) History of surgery (2005) History of surgery (2005) History of surgery (2005) Family History Grandmother Hypertension Stroke Father Diabetes mellitus Social History household members: spouse Smoking Status: Current every day smoker alcohol intake: current Smoking Status: Current every day smoker tobacco type: cigarettes alcohol intake frequency: holidays/special occasions only Substance Use Type: does not use Exam <Chris Meade PA-C - Last Filed: 08/01/23 13:38> Narrative Exam Narrative: Const General:?cooperative, healthy appearing and comfortable HENMT Head:?normal to inspection Ears:?hearing grossly normal bilaterally Nose:?external nose normal Face and sinus:?normal facial exam and sinuses nontender Mouth:?oral mucosae normal Throat:?posterior oropharynx normal Eyes General:?appearance normal, both eyes and all related structures Neck Neck:?normal visual inspection and no lymphadenopathy noted Resp Effort & Inspection:?normal respiratory effort Auscultation:?clear to auscultation bilaterally Cardio Rate:?regular rate Rhythm:?regular rhythm GI Abdomen is soft, nondistended, generalized tenderness to palpation. Patient states that pushing down on the RLQ actually made her feel better. There is no CVA tenderness. Neuro General:?patient alert, patient awake and patient oriented x3 Initial Vital Signs Initial Vital Signs: Vital Signs Temperature 98.1 F 08/01/23 10:56 Pulse Rate 101 H 08/01/23 10:56 Respiratory Rate 15 08/01/23 10:56 Blood Pressure 142/69 H 08/01/23 10:56 Pulse Oximetry 98 08/01/23 10:56 Oxygen Delivery Method Room Air 08/01/23 10:56 <Zuleima Thomas MD - Last Filed: 08/01/23 16:24> Initial Vital Signs Initial Vital Signs: Vital Signs Temperature 98.1 F 08/01/23 10:56 Pulse Rate 101 H 08/01/23 10:56 Respiratory Rate 15 08/01/23 10:56 Blood Pressure 142/69 H 08/01/23 10:56 Pulse Oximetry 98 08/01/23 10:56 Oxygen Delivery Method Room Air 08/01/23 10:56 Course <Chris Meade PA-C - Last Filed: 08/01/23 13:38> Orders Ordered: ED Orders 08/01/23 11:04 Urinalysis and Microscopic Stat 08/01/23 11:09 Complete Blood Count AUTO DIFF Stat Comprehensive Metabolic Panel Stat Lipase Stat 08/01/23 11:30 US pelvic complete Stat 08/01/23 12:44 CT abdomen pelvis w con Stat Discontinued Medications Ketorolac Tromethamine (Ketorolac 30 Mg/Ml Vial) 15 mg IV NOW ONE Stop: 08/01/23 12:39 Last Admin: 08/01/23 13:03 Dose: 15 mg Documented By: BS Ondansetron HCl (Ondansetron 4 Mg/2 Ml Inj) 4 mg IV NOW PRN PRN Reason: Nausea And Vomiting Vital Signs Vital signs: Vital Signs - 8 hr 08/01/23 10:56 08/01/23 13:11 Temperature 98.1 F Pulse Rate 101 H 78 Respiratory Rate 15 Blood Pressure 142/69 H 159/106 H Pulse Oximetry 98 99 Oxygen Delivery Method Room Air Room Air <Zuleima Thomas MD - Last Filed: 08/01/23 16:24> Orders Ordered: ED Orders 08/01/23 11:04 Urinalysis and Microscopic Stat 08/01/23 11:09 Complete Blood Count AUTO DIFF Stat Comprehensive Metabolic Panel Stat Lipase Stat 08/01/23 11:30 US pelvic complete Stat 08/01/23 12:44 CT abdomen pelvis w con Stat Discontinued Medications Ketorolac Tromethamine (Ketorolac 30 Mg/Ml Vial) 15 mg IV NOW ONE Stop: 08/01/23 12:39 Last Admin: 08/01/23 13:03 Dose: 15 mg Documented By: BS Ondansetron HCl (Ondansetron 4 Mg/2 Ml Inj) 4 mg IV NOW PRN PRN Reason: Nausea And Vomiting Vital Signs Vital signs: Vital Signs - 8 hr 08/01/23 10:56 08/01/23 13:11 Temperature 98.1 F Pulse Rate 101 H 78 Respiratory Rate 15 Blood Pressure 142/69 H 159/106 H Pulse Oximetry 98 99 Oxygen Delivery Method Room Air Room Air MDM - Abdominal Pain <Hyma FRAN Meade - Last Filed: 08/01/23 13:38> Lab Data 08/01/23 11:09 08/01/23 11:09 Labs: Lab Results 08/01/23 08/01/23 Range/Units 11:04 11:09 WBC 7.1 (4.5-11.0) X10^3/uL RBC 4.53 (4.0-5.2) X10^6/uL Hgb 14.0 (12.0-16.0) g/dL Hct 40.6 (36-46) % MCV 89.6 (80-100) fL MCH 30.9 (26-34) PG MCHC 34.5 (30-36) % RDW 13.0 (11.6-14.8) % Plt Count 329 (150-400) X10^3/uL Neut % (Auto) 63.1 (50-75) % Lymph % (Auto) 28.7 (25-40) % [place] % (Auto) 5.2 (3-14) % Eos % (Auto) 2.4 (2-4) % Baso % (Auto) 0.6 (0-2) % Neut # (Auto) 4500 (8049-1448) /uL Lymph # (Auto) 2000 (6844-7305) /uL [place] # (Auto) 400 (0-900) /uL Eos # (Auto) 200 (0-450) /uL Baso # (Auto) 0 (0-100) /uL Sodium 134 L (137-145) mmol/L Potassium 3.9 (3.4-5.1) mmol/L Chloride 103 (98-107) mmol/L Carbon Dioxide 26 (22-32) mmol/L BUN 12 (7-17) mg/dL Creatinine 0.70 (0.52-1.04) mg/dL Estimated GFR > 60 (>60) mL/min BUN/Creatinine Ratio 17.1 (6-22) Glucose 113 H (70-100) mg/dL Calcium 9.4 (8.4-10.2) mg/dL Total Bilirubin 0.5 (0.2-1.3) mg/dL AST 31 (14-36) IU/L ALT 45 H (<35) IU/L Alkaline Phosphatase 66 (38-126) U/L Total Protein 7.3 (6.3-8.2) g/dL Albumin 4.2 (3.5-5.0) g/dL Globulin 3.1 (1.7-4.1) g/dL Albumin/Globulin Ratio 1.4 (1.0-2.8) Lipase 50 (23-300) U/L Urine Color Yellow Urine Appearance Clear Urine pH 7.0 (4.5-8.0) Ur Specific [place] 1.020 (1.000-1.035) Urine Protein Negative (Negative) Urine Glucose (UA) Negative (Negative) g/dL Urine Ketones Negative (NEGATIVE) Urine Occult Blood Negative (Negative) Urine Nitrate Negative (Negative) Urine Bilirubin Negative (NEGATIVE) Urine Urobilinogen 0.2 (0.2) E.U./dL Ur Leukocyte Esterase Negative (NEGATIVE) Urine RBC None seen (0-5/HPF) Urine WBC None seen (0-5/HPF) Ur Squamous Epith Cells 1-5 /hpf (0-5/HPF) Urine Bacteria None seen (None) Ur Culture Indicated? Cult not indicated MDM Narrative Medical decision making narrative: 47-year-old female with past medical history bipolar disorder, hypertension, distant history of ovarian cysts presents to the ED with 1 month of right sided pelvic pain. Concern for ruptured ovarian cyst versus constipation versus diverticulitis versus constipation versus malignancy versus UTI versus nephrolithiasis versus musculoskeletal sprain/strain versus other intra- abdominal pathology versus other. Will obtain labs, UA, ultrasound pelvis. Will reassess. Will consider CT abdomen pelvis. Labs within normal limits. UA without UTI. Ultrasound shows multiple fibroids but no other abnormalities. CT abdomen pelvis does not show any abnormalities. Patient's symptoms could likely be from the fibroids or from a musculoskeletal etiology. Recommend mild stretches. Recommend follow-up with gynecology as soon as possible. ED return precautions discussed with patient. Patient verbalized understanding. Medical records reviewed: Yes <Zuleima Thomas MD - Last Filed: 08/01/23 16:24> Lab Data Labs: Lab Results 08/01/23 08/01/23 Range/Units 11:04 11:09 WBC 7.1 (4.5-11.0) X10^3/uL RBC 4.53 (4.0-5.2) X10^6/uL Hgb 14.0 (12.0-16.0) g/dL Hct 40.6 (36-46) % MCV 89.6 (80-100) fL MCH 30.9 (26-34) PG MCHC 34.5 (30-36) % RDW 13.0 (11.6-14.8) % Plt Count 329 (150-400) X10^3/uL Neut % (Auto) 63.1 (50-75) % Lymph % (Auto) 28.7 (25-40) % [place] % (Auto) 5.2 (3-14) % Eos % (Auto) 2.4 (2-4) % Baso % (Auto) 0.6 (0-2) % Neut # (Auto) 4500 (5742-9642) /uL Lymph # (Auto) 2000 (9580-0372) /uL [place] # (Auto) 400 (0-900) /uL Eos # (Auto) 200 (0-450) /uL Baso # (Auto) 0 (0-100) /uL Sodium 134 L (137-145) mmol/L Potassium 3.9 (3.4-5.1) mmol/L Chloride 103 (98-107) mmol/L Carbon Dioxide 26 (22-32) mmol/L BUN 12 (7-17) mg/dL Creatinine 0.70 (0.52-1.04) mg/dL Estimated GFR > 60 (>60) mL/min BUN/Creatinine Ratio 17.1 (6-22) Glucose 113 H (70-100) mg/dL Calcium 9.4 (8.4-10.2) mg/dL Total Bilirubin 0.5 (0.2-1.3) mg/dL AST 31 (14-36) IU/L ALT 45 H (<35) IU/L Alkaline Phosphatase 66 (38-126) U/L Total Protein 7.3 (6.3-8.2) g/dL Albumin 4.2 (3.5-5.0) g/dL Globulin 3.1 (1.7-4.1) g/dL Albumin/Globulin Ratio 1.4 (1.0-2.8) Lipase 50 (23-300) U/L Urine Color Yellow Urine Appearance Clear Urine pH 7.0 (4.5-8.0) Ur Specific [place] 1.020 (1.000-1.035) Urine Protein Negative (Negative) Urine Glucose (UA) Negative (Negative) g/dL Urine Ketones Negative (NEGATIVE) Urine Occult Blood Negative (Negative) Urine Nitrate Negative (Negative) Urine Bilirubin Negative (NEGATIVE) Urine Urobilinogen 0.2 (0.2) E.U./dL Ur Leukocyte Esterase Negative (NEGATIVE) Urine RBC None seen (0-5/HPF) Urine WBC None seen (0-5/HPF) Ur Squamous Epith Cells 1-5 /hpf (0-5/HPF) Urine Bacteria None seen (None) Ur Culture Indicated? Cult not indicated Discharge Plan Departure Patient Disposition: Home Clinical Impression: Abdominal pain Qualifiers: Abdominal location: right lower quadrant Qualified Code(s): R10.31 - Right lower quadrant pain Instructions: DI for Abdominal Pain-Adult Activity Restrictions/Additional Instructions: You were evaluated in the ED today for right-sided abdominal pain. Your labs were normal. Your ultrasound shows multiple fibroids but no other abnormalities. Your CT abdomen pelvis did not show any abnormalities. It is possible that your symptoms are either due to the fibroids or a musculoskeletal sprain/strain. You may trial some mild stretching exercises for relief. You may also take Tylenol, ibuprofen and apply heat packs for relief. Please also follow-up with a locker room supervisor for further evaluation of the fibroids. Return to the ED if you have worsening symptoms, persistent vomiting, fever, chills. Prescriptions: No Action cyclobenzaprine 5 mg tablet 5 mg PO TID PRN (Reason: muscle spasm) Qty: 20 0RF bupropion HCl 150 mg tablet extended release 24 hr 150 mg PO QAM lamotrigine 150 mg tablet 150 mg PO DAILY losartan [Cozaar] 50 mg tablet 50 mg PO DAILY ziprasidone HCl 40 mg capsule 40 mg PO BID Rx Instructions: give with food (meal/snack) cyclobenzaprine 5 mg tablet 5 mg PO TID PRN (Reason: muscle spasm) Qty: 20 0RF ibuprofen 200 mg tablet 400 mg PO Q6H Qty: 60 0RF oxycodone 5 mg tablet 5 mg PO Q6H PRN (Reason: pain) Qty: 10 0RF acetaminophen [Tylenol] 325 mg capsule 650 mg PO QID PRN (Reason: pain) Qty: 60 0RF Referrals: Mayela Brambila, [Primary Care Provider] - Stand Alone Forms: Patient Portal/API ED Sign-out <Zuleima Thomas MD - Last Filed: 08/01/23 16:24> Cosign ED Attending Cosignature Attestation: I did not see this patient. I was available all times for consultation.
[2023-08-01 11:19] LABS: Add Manual Diff / Slide Review NO; Basophils Absolute Auto 0 /uL (0-100); Basophils Percent Auto 0.6 % (0-2); Eosinophils Absolute Auto 200 /uL (0-450); Eosinophils Percent Auto 2.4 % (2-4); Hematocrit 40.6 % (36-46); Lymphocytes Absolute Auto 2000 /uL (1100-4500); Lymphocytes Percent Auto 28.7 % (25-40); Mean Corpuscular HGB Conc 34.5 % (30-36); Mean Corpuscular Hemoglobin 30.9 PG (26-34); Mean Corpuscular Volume 89.6 fL (80-100); Monocytes Absolute Auto 400 /uL (0-900); Monocytes Percent Auto 5.2 % (3-14); Neutrophils Absolute Auto 4500 /uL (1500-7000); Neutrophils Percent Auto 63.1 % (50-75); Platelet Count 329 X10^3/uL (150-400); Red Blood Cell Count 4.53 X10^6/uL (4.0-5.2); White Blood Cell Count 7.1 X10^3/uL (4.5-11.0)
--- NOTE | 2023-08-01 11:30 | DI.US.S_ITS ---
PROCEDURE: US PELVIC COMPLETE INDICATIONS: RIGHT PELVIC PAIN TECHNIQUE: Real-time scanning was performed of the pelvic organs, with image documentation. Additional endovaginal scanning was necessary due to incomplete visualization of the adnexal and endometrial structures by transabdominal scanning. COMPARISON: None. FINDINGS: Uterus: Uterus is anteverted and normal in size at 8.2 x 4.8 x 5.7 cm. The myometrium is heterogenous. The endometrium measures 7 mm combined thickness. A right anterior intramural fibroid measures 1.8 x 1.7 x 0.7 cm. A left anterior intramural fibroid measures 1.0 x 0.6 x 0.9 cm. A mid anterior intramural fibroid measures 1.7 x 1.3 x 1.1 cm. Ovaries: The right ovary measures 2.0 x 1.4 x 1.7 cm, with a calculated ovarian volume of 2.5 cc. The left ovary measures 2.9 x 2.3 x 2.0 cm, with a calculated ovarian volume of 7.0 cc. The ovaries have a normal sonographic appearance. Less than 12 follicles can be seen in each ovary. No adnexal masses are seen. Other: No pathologic free abdominal or pelvic fluid. IMPRESSION: 1. No acute ultrasound abnormality of the pelvis. 2. Fibroid uterus. We strive to produce accurate, complete, and clear reports of imaging services. To assist us in improving patient care, this report was composed using standard report templates and voice recognition software. Therefore, it may contain abnormal punctuation, insertions and/or omissions. Occasional wrong-word or sound-alike substitutions may occur. Though we review the report and make efforts to correct it, we do recommend that the report be read carefully in proper context to recognize any text inaccuracies. Dictated by: Sujit Valdivia M.D. on 08/01/2023 at 11:29 Approved by: Sujit Valdivia M.D. on 08/01/2023 at 11:31
[2023-08-01 11:34] LABS: Alanine Aminotransferase 45 IU/L (<35); Albumin 4.2 g/dL (3.5-5.0); Albumin Globulin Ratio 1.4 (1.0-2.8); Alkaline Phosphatase 66 U/L (38-126); Aspartate Aminotransferase 31 IU/L (14-36); BUN Creatinine Ratio 17.1 (6-22); Bilirubin Total 0.5 mg/dL (0.2-1.3); Blood Urea Nitrogen 12 mg/dL (7-17); Calcium 9.4 mg/dL (8.4-10.2); Carbon Dioxide 26 mmol/L (22-32); Chloride 103 mmol/L (98-107); Estimated Glomerular Filt Rate > 60 mL/min (>60); Globulin 3.1 g/dL (1.7-4.1); Glucose 113 mg/dL (70-100); HEMOLYSIS < 15 (0-50); Lipase 50 U/L (23-300); Potassium 3.9 mmol/L (3.4-5.1); Sodium 134 mmol/L (137-145); Total Protein 7.3 g/dL (6.3-8.2)
[2023-08-01 11:52] LABS: Appearance Urine UA CLEAR; Bilirubin Urine UA NEGATIVE (NEGATIVE); Color Urine UA YELLOW; Glucose Urine UA NEGATIVE (Negative); Ketones Urine UA NEGATIVE (NEGATIVE); Leukocyte Esterase Urine UA NEGATIVE (NEGATIVE); Nitrite Urine UA NEGATIVE (Negative); Occult Blood Urine UA NEGATIVE (Negative); Protein Urine UA NEGATIVE (Negative); Urobilinogen Urine UA 0.2 E.U./dL (0.2)
[2023-08-01 11:59] LABS: Bacteria Urine None Seen; Culture Indicated Urine Cult Not Indicated; RBC Urine None Seen (0-5/HPF); Squamous Epithelial Cell Urine 1-5 /HPF (0-5/HPF); WBC Urine None Seen (0-5/HPF)
--- NOTE | 2023-08-01 12:44 | DI.CT.S_ITS ---
PROCEDURE: CT ABDOMEN PELVIS W CON INDICATIONS: RLQ pain TECHNIQUE: After the administration of intravenous contrast, axial sections acquired from the lung bases to the pubic symphysis. Coronal and sagittal reformats were performed. For radiation dose reduction, the following was used: automated exposure control, adjustment of mA and/or kV according to patient size. COMPARISON: [facility], , PELVIC COMPLETE, 08/01/2023, 11:40. FINDINGS: Image quality: Excellent. Lung bases: Unremarkable. Heart: No significant findings. ABDOMEN: Liver: Unremarkable. Gallbladder: Unremarkable. Biliary ducts: Unremarkable. Pancreas: Unremarkable. Spleen: Unremarkable. Adrenal Glands: Unremarkable. Kidneys and Ureters: Unremarkable. Stomach and Bowel: A few diverticula are seen in the colon without signs of acute diverticulitis. Status post appendectomy. Small bowel loops and stomach are unremarkable. Peritoneum: No abnormal intraperitoneal fluid. No free air. Ventral Wall: Small fat containing periumbilical hernia. Abdominal Nodes: No retroperitoneal or mesenteric adenopathy by size criteria. Vessels: Aorta and inferior vena cava are normal in size. PELVIS: Pelvic Organs: Small focus of fluid attenuation is seen within the uterine fundus measuring approximately 1.9 x 1.3 cm in axial images. A peripherally enhancing left ovarian cyst is seen measuring 1.4 cm. Bladder: Unremarkable. Pelvic Nodes: No enlarged lymph nodes. Miscellaneous: No hernias are seen. Bones: Unremarkable. IMPRESSION: 1. Nonspecific fluid signal is seen within the uterine fundus. Recommend correlation with pelvic ultrasound. Peripherally enhancing left ovarian corpus luteal cyst. 2. Status post appendectomy. No acute inflammatory process identified in the abdomen or pelvis. 3. Mild colonic diverticulosis without signs of acute diverticulitis. Approved by: Phillip Shepherd M.D. on 08/01/2023 at 13:15
[2023-08-01] MEDS: KETOROLAC 30 MG/ML VIAL 15 MG IV (13:03)
[2023-08-01 13:11] VITALS: BP 159/106; PULSE 78; O2SAT 99
== END 2023-08-01 13:45 | disposition home or self-care (01) ==
PROVIDERS: Emergency Medicine; Emergency Provider Student in an Organized Health Care Education/Training Program; PCP Student in an Organized Health Care Education/Training Program
DX: R10.31 Right lower quadrant pain (principal); D25.9 Leiomyoma of uterus, unspecified; F17.210 Nicotine dependence, cigarettes, uncomplicated
CPT/HCPCS: 36415; 74177; 76830; 76856; 80053; 81001; 83690; 85025; 96374; 99284; J1885

== ENCOUNTER 2024-10-10 10:25 | Emergency (ER) | payer OTHER, SELFPAY ==
[2024-10-10 10:37] VITALS: BP 191/115; PULSE 97; RESP 16; TEMP 36.7; O2SAT 100; BMI 34.7
--- NOTE | 2024-10-10 10:45 | DI.RAD.S_ITS ---
PROCEDURE: XR CHEST 1V INDICATIONS: chest pain TECHNIQUE: One view of the chest was acquired. COMPARISON: None. FINDINGS: Surgical changes and devices: None. Lungs and pleura: Lungs are clear. No pleural effusions or pneumothorax. Mediastinum: Mediastinal contours appear normal. Heart size is normal. Bones and chest wall: No suspicious bony lesions. Overlying soft tissues appear unremarkable. IMPRESSION: No acute cardiopulmonary abnormality is seen. Dictated by: Hever Wild M.D. on 10/10/2024 at 11:04 Approved by: Hever Wild M.D. on 10/10/2024 at 11:04
--- NOTE | 2024-10-10 10:58 | EKG_ITS ---
[place] [address] [address] [place] [id number] Test Date: 2024-10-10 Pat Name: Vicky Crump Department: [facility] Room: Gender: Female Customer Services Manager: ISAURO : 1975 Requested By: Order Number: [id number] Reading MD: Igor Marte Measurements Intervals [place] Rate: 91 P: 42 [place]: 210 QRS: 32 QRSD: 92 T: 25 QT: 378 QTc: 464 Interpretive Statements Sinus rhythm with 1st degree AV block Possible Left atrial enlargement Cannot rule out Anterior infarct , age undetermined Electronically Signed On 10-10-2024 15:20:54 PST by Igor Marte
--- NOTE | 2024-10-10 11:12 | PC.NURSE ---
This RN walked into the room to introduce myself. Pt stated she had chest pressure this morning. I attempted to put pt on the monitor and she stated if the EKG is fine then she does not need monitoring or bloodwork. I asked her how we could help her this morning and she said I don't need this attitude from you. This RN excused herself from the room and informed Dr and manager competitive intelligence of pt's chief complaint and comments. manager competitive intelligence will assist with this patient.
--- NOTE | 2024-10-10 11:26 | ED_ITS ---
HPI - Chest Pain General Chief Complaint: Chest Pain Stated Complaint: sob, nausea, tightness on chest Time Seen by Provider: 10/10/24 11:26 Source: patient Mode of arrival: Ambulatory Limitations: no limitations History of Present Illness HPI narrative: 49-year-old female presents with what she described as chest pressure that was ?slight?, it began yesterday. She is denying any injury, no difficulty breathing but she equates this to when she previously had costochondritis, stating it feels similar?. She does endorse having a cough for the last 2 years postnasal after having moved to the [facility]. She reports taking semaglutide every Monday, she had her 1st episode of nausea following the medication, she took a Dramamine as well as an aspirin last night and again this morning., she denies any back pain, abdominal pain, musculoskeletal injury, urinary symptoms, no treatment tried. She called a phone nurse describing her symptoms and they directed her to seek medical attention at a local emergency department. Her history is significant for hypertension. She states she normally takes her losartan at night but she missed her dose last night and did take 1 this morning, she has anxiety, she takes Geodon and Lamictal for PTSD, anxiety, depression, bipolar type 1, no longer takes Wellbutrin. GI review of systems she does endorse heartburn, sour taste, takes Tums regularly, has never had an EGD, no history of GI bleed, no prior PPIs. Only surgical history is appendectomy, tubal ligation, she no longer gets menstrual cycles, allergy to ceftriaxone. All other systems reviewed and are negative. She is declining any blood work. Related Data Home Medications Medication Instructions Recorded Confirmed bupropion HCl 150 mg 24 hr tablet, 150 mg PO QAM 03/03/22 02/25/23 extended release lamotrigine 150 mg tablet 150 mg PO DAILY 03/03/22 02/25/23 losartan 50 mg tablet (Cozaar) 50 mg PO DAILY 03/03/22 02/25/23 ziprasidone HCl 40 mg capsule 40 mg PO BID 03/03/22 02/25/23 Previous Rx's Medication Instructions Recorded acetaminophen 325 mg capsule 650 mg (2 x 325 mg) PO QID PRN 04/13/22 (Tylenol) pain #60 caps ibuprofen 200 mg tablet 400 mg (2 x 200 mg) PO Q6H #60 tabs 04/13/22 oxycodone 5 mg tablet 5 mg PO Q6H PRN pain #10 tabs 04/13/22 cyclobenzaprine 5 mg tablet 5 mg PO TID PRN muscle spasm #20 02/25/23 tabs cyclobenzaprine 5 mg tablet 5 mg PO TID PRN muscle spasm #20 06/15/23 tabs Allergies Allergy/AdvReac Type Severity Reaction Status Date / Time ceftriaxone [From Rocephin] Allergy Mild Hives Verified 08/01/23 10:59 Review of Systems Review of Systems Narrative: All other systems reviewed and are negative. Patient History Medical History PTSD (post-traumatic stress disorder) Anxiety Depression Bipolar 1 disorder Mass of left lower extremity Hyponatremia Hot flashes Family history of breast cancer Hypertension Encounter for weight management Surgical History History of endometrial ablation (07/2013) Hx of tubal ligation (2012) Hx of appendectomy (2003) History of surgery (2005) History of surgery (2005) History of surgery (2005) Family History Grandmother Hypertension Stroke Father Diabetes mellitus Social History household members: spouse Smoking Status: Current some day smoker alcohol intake: current Smoking Status: Current some day smoker tobacco type: cigarettes and vaping alcohol intake frequency: holidays/special occasions only Exam Initial Vital Signs Initial Vital Signs: Vital Signs Temperature 98.1 F 10/10/24 10:37 Pulse Rate 97 H 10/10/24 10:37 Respiratory Rate 16 10/10/24 10:37 Blood Pressure 191/115 H 10/10/24 10:37 Pulse Oximetry 100 10/10/24 10:37 Oxygen Delivery Method Room Air 10/10/24 10:37 Reviewed and are normal except for elevated blood pressure reading today in a known hypertension patient Const Other: Seated, smiling she is here with her , alert and oriented x4, makes good eye contact. Eyes General: Yes appearance normal, both eyes and all related structures Chest Chest: normal inspection of the chest Other: Focal tenderness at the mid epigastric region, no mass, no guarding, mild tenderness to bilateral sternal costal tissues, no mass or guarding. No focal tenderness in the posterior chest, barrel hoop test is negative. Resp Effort & Inspection: normal respiratory effort and able to speak in complete sentences Auscultation: clear to auscultation bilaterally, no rales, no rhonchi and no wheezes Cardio Rate: regular rate Rhythm: regular rhythm GI Inspection: normal to inspection, no edema and non-distended Palpation: soft, no hepatosplenomegaly and No guarding Percussion: normal to percussion Auscultation: normal bowel sounds Other: No CVA tenderness. Skin General: no rashes or lesions noted, elasticity normal and turgor normal Course Orders Ordered: Discontinued Medications Aspirin (Aspirin 81 Mg Chew Tab) 324 mg PO NOW ONE Stop: 10/10/24 10:46 Last Admin: 10/10/24 11:59 Dose: Not Given Documented By: SAADIA Al Hydrox/Mg Hydrox/Simethicone 20 ml/ Lidocaine HCl 15 ml 0 ml PO NOW ONE Stop: 10/10/24 11:51 Last Admin: 10/10/24 11:57 Dose: 35 ml Documented By: SAADIA Reevaluation(s) Reevaluation #1: She was administered a GI cocktail at 12:00 p.m. and had immediate resolution of her discomfort while I was in the room. No nausea. She is smiling. Manually auscultated blood pressure in the left arm seated is 142/102. Heart rate is 72. She remains afebrile. She states she is ready to go home. Vital Signs Vital signs: Vital Signs - 8 hr 10/10/24 10:37 Temperature 98.1 F Pulse Rate 97 H Respiratory Rate 100 H Blood Pressure 191/115 H Pulse Oximetry 100 Oxygen Delivery Method Room Air MDM - Chest Pain Lab Data Lab results narrative: She declined all blood work. Imaging Data Chest x-ray: My Impression: Deferred to radiologist's interpretation below. Radiologist's Impression: PROCEDURE: XR CHEST 1V INDICATIONS: chest pain TECHNIQUE: One view of the chest was acquired. COMPARISON: None. FINDINGS: Surgical changes and devices: None. Lungs and pleura: Lungs are clear. No pleural effusions or pneumothorax. Mediastinum: Mediastinal contours appear normal. Heart size is normal. Bones and chest wall: No suspicious bony lesions. Overlying soft tissues appear unremarkable. IMPRESSION: No acute cardiopulmonary abnormality is seen. Dictated by: Hever Wild M.D. on 10/10/2024 at 11:04 Approved by: Hever Wild M.D. on 10/10/2024 at 11:04 ECG Data Interpretation: Sinus rhythm with first-degree AV block ME interval is 0.21 seconds no ectopy, no ST segment changes, no P or T-wave abnormalities. MDM Narrative Medical decision making narrative: This 49-year-old female had dramatic improvement following a GI cocktail by mouth. She feels reassured that her EKG did not show any acute changes. She declined any blood work. She has not having any abdominal pain, normal chest x- ray, afebrile, history of postnasal drainage with a chronic cough for the last couple of years, we discussed her GI history and it sounds like she has signi ficant heartburn and acid reflux type symptoms, she uses ibuprofen regularly without food, eats in the bed, and uses Tums regularly which do help but they are temporary. She likely is having some pain related to her underlying GI symptoms. She declined any blood work so an acute cardiac issue can not be fully ruled out but again she feels reassured after having some relief with this medication in-house. Plan is to start her on a proton pump inhibitor such as Prilosec, avoid ibuprofen or any other NSAIDs or at least take with food or limit their use, we discussed raising the head of the bed, not eating or lying down within 1 hour after having p.o. intake. I have asked her to follow up with her PCP as well. Consider outpatient testing for H pylori, we did review red flag warning signs at length and to have her return to the emergency department immediately if her pain returns she develops any new symptoms or any other worrisome symptoms. Repeat of her blood pressure manually auscultated by this provider is 142/102 heart rate of 72. Red flag warning signs were reviewed in detail and reiterated. Discharge Plan Departure Patient Disposition: Home Clinical Impression: Chest pain due to GERD Instructions: DI for Gastroesophageal Reflux Disease (GERD) Activity Restrictions/Additional Instructions: It was a pleasure to meet you today I am sorry that you were having some discomfort, you were given a GI cocktail which consists of Mylanta as well as some numbing medication and your pain did improve dramatically. This leads me to think you are having some acid reflux type symptoms, I would like you to start [id number] Prilosec 20mg daily, 1 hour before any oral intake. Avoid lying down within 1 hour of eating, try racing the head of the bed as we discussed, try to improve your water intake, I also recommend that you follow up with your primary care provider for follow up as well as potential long-term management. Do the best you can to avoid nonsteroidal anti-inflammatories if you do need to take your ibuprofen please take it with food. Alternative pain r eliever would be acetaminophen also known as Tylenol. If you have any recurrence of pain, develop any new symptoms or any worrisome symptoms do not hesitate to return to the emergency department. Prescriptions: No Action cyclobenzaprine 5 mg tablet 5 mg PO TID PRN (Reason: muscle spasm) Qty: 20 0RF bupropion HCl 150 mg tablet extended release 24 hr 150 mg PO QAM lamotrigine 150 mg tablet 150 mg PO DAILY losartan [Cozaar] 50 mg tablet 50 mg PO DAILY ziprasidone HCl 40 mg capsule 40 mg PO BID Rx Instructions: give with food (meal/snack) cyclobenzaprine 5 mg tablet 5 mg PO TID PRN (Reason: muscle spasm) Qty: 20 0RF ibuprofen 200 mg tablet 400 mg PO Q6H Qty: 60 0RF oxycodone 5 mg tablet 5 mg PO Q6H PRN (Reason: pain) Qty: 10 0RF acetaminophen [Tylenol] 325 mg capsule 650 mg PO QID PRN (Reason: pain) Qty: 60 0RF Referrals: Mayela Brambila DO [Primary Care Provider] - Stand Alone Forms: Patient Portal/API/Survey
[2024-10-10] MEDS: MAG HYDROX/ALUMINUM/SIMETH SUS 20 ML, LIDOCAINE VISCOUS 2% 15 ML PO (11:57)
--- NOTE | 2024-10-10 12:38 | PC.NURSE ---
Pt declines d/c vitals. Provider has taken pt's recent BP with manual cuff.
== END 2024-10-10 12:40 | disposition home or self-care (01) ==
PROVIDERS: Emergency Provider Physician Assistant Medical; PCP Student in an Organized Health Care Education/Training Program
DX: K21.9 Gastro-esophageal reflux disease without esophagitis (principal); R07.89 Other chest pain; I44.0 Atrioventricular block, first degree; R06.02 Shortness of breath; R11.0 Nausea; I10 Essential (primary) hypertension; F17.210 Nicotine dependence, cigarettes, uncomplicated
CPT/HCPCS: 71045; 93005; 99283; 99284